=== PATIENT | male | born 1965 | race Caucasian/White ===

== ENCOUNTER → 2019-11-09 | Outpatient (CLI) | payer OTHER ==
[~2019-11-09] MED LIST: CELEBREX 200 M200 M1 PO; LASIX 20 MG TAB20 MG PO; OMEPRAZOLE40 MG PO; PROAIR RESPICL90 MCG IH; TRIBENZOR 40-11 EAC1 PO
[2019-11-09 08:18] LABS: POTASSIUM 3.4 mmol/L (3.5-5.1)
== END ==
LOC: M.LAB 04:10
PROVIDERS: Anesthesiology
DX: E87.6 Hypokalemia (principal); E11.9 Type 2 diabetes mellitus without complications